=== PATIENT | female | born 1995 | race Caucasian/White ===

== ENCOUNTER 2022-08-22 07:56 | Outpatient (CLI) | payer BC ==
[~2022-08-22 07:56] MED LIST: METO-292 PO
[2022-08-22 08:55] LABS: BASOPHILS % (AUTO) 0.4 % (0-1); EOSINOPHILS # (AUTO) 0.1 X10'3 (0-0.9); EOSINOPHILS % (AUTO) 0.6 % (0-6); HEMATOCRIT 41.7 % (35.0-45.0); HEMOGLOBIN 13.5 g/dl (12.0-16.0); LYMPHOCYTES % (AUTO) 24.5 % (21-51); MEAN CORPUSCULAR HEMOGLOBIN 26.7 PG (27.0-31.0); MEAN CORPUSCULAR HGB CONC 32.5 g/dL (33.0-36.5); MEAN CORPUSCULAR VOLUME 82.4 FL (78-98); MEAN PLATELET VOLUME 8.2 FL (7.4-10.4); MONOCYTES # (AUTO) 0.5 X10'3 (0-0.9); MONOCYTES % (AUTO) 6.2 % (2-12); NEUTROPHILS # (AUTO) 5.6 X10'3 (1.8-7.7); NEUTROPHILS % (AUTO) 68.3 % (42-75); PLATELET COUNT 226 X10'3 (140-440); RED BLOOD COUNT 5.06 X10'6 (4.20-5.60); RED CELL DISTRIBUTION WIDTH 20.4 % (11.5-14.5); WHITE BLOOD COUNT 8.2 X10'3 (4.5-11.0)
[2022-08-22 08:59] LABS: HEMOGLOBIN A1C 5.3 % (4.5-6.2)
[2022-08-22 09:10] LABS: ALANINE AMINOTRANSFERASE 22 U/L (12-78); ALBUMIN 4.3 G/DL (3.4-5.0); ALBUMIN/GLOBULIN RATIO 1.3 (1.1-1.5); ALKALINE PHOSPHATASE 64 IU/L (46-116); ANION GAP 7 (8-16); ASPARTATE AMINO TRANSFERASE 17 U/L (10-37); BILIRUBIN,TOTAL 0.9 MG/DL (0.1-1.0); BLOOD UREA NITROGEN 13 MG/DL (7-18); BUN/CREATININE RATIO 12.6 (6.6-38.0); CALCIUM 9.2 MG/DL (8.5-10.1); CHLORIDE 104 MMOL/L (99-107); CHOLESTEROL 188 MG/DL (0-200); CREATININE 1.03 MG/DL (0.40-0.90); GLUCOSE 90 MG/DL (70-104); HDL CHOLESTEROL 93 MG/DL (35-60); LDL CHOLESTEROL 78 MG/DL (50-100); POTASSIUM 3.7 MMOL/L (3.5-5.1); SODIUM 140 MMOL/L (135-145); TOTAL CARBON DIOXIDE 28.7 MMOL/L (24-32); TOTAL PROTEIN 7.5 G/DL (6.4-8.2); TRIGLYCERIDES 80 MG/DL (20-135); eGFR 65 ML/MIN
[2022-08-22 09:22] LABS: C-REACTIVE PROTEIN < 0.05 MG/DL (0.0-0.5)
[2022-08-22 09:50] LABS: ANISOCYTOSIS 3+; PLATELET ESTIMATE NORMAL
[2022-08-23 11:07] LABS: ESTRADIOL 50.6 pg/mL (.); FSH, SERUM 5.7 mIU/mL (.); LUTEINIZING HORMONE 4.3 mIU/mL (.); PROLACTIN 5.2 ng/mL (4.8-23.3)
== END 2022-08-22 23:59 | disposition home or self-care (01) ==
LOC: LAB 07:56
PROVIDERS: ATTEND Nurse Practitioner Family
DX: R68.89 Other general symptoms and signs (principal)
CPT/HCPCS: 36415; 80053; 80061; 82670; 83001; 83002; 83036; 84146; 84439; 84443; 85008; 85025; 86140

== ENCOUNTER 2023-11-12 12:08 | Outpatient (CLI) | payer BC ==
[2023-11-12 14:09] LABS: BASOPHILS % (AUTO) 0.5 % (0-1); EOSINOPHILS % (AUTO) 0.7 % (0-6); HEMATOCRIT 41.6 % (35.0-45.0); HEMOGLOBIN 13.9 g/dl (12.0-16.0); LYMPHOCYTES # (AUTO) 2.3 X10'3 (1.1-4.8); LYMPHOCYTES % (AUTO) 35.7 % (21-51); MEAN CORPUSCULAR HEMOGLOBIN 29.8 PG (27.0-31.0); MEAN CORPUSCULAR HGB CONC 33.4 g/dL (33.0-36.5); MEAN CORPUSCULAR VOLUME 89.3 FL (78-98); MEAN PLATELET VOLUME 8.4 FL (7.4-10.4); MONOCYTES # (AUTO) 0.4 X10'3 (0-0.9); MONOCYTES % (AUTO) 6.6 % (2-12); NEUTROPHILS # (AUTO) 3.7 X10'3 (1.8-7.7); NEUTROPHILS % (AUTO) 56.5 % (42-75); PLATELET COUNT 213 X10'3 (140-440); RED BLOOD COUNT 4.65 X10'6 (4.20-5.60); RED CELL DISTRIBUTION WIDTH 13.3 % (11.5-14.5); WHITE BLOOD COUNT 6.6 X10'3 (4.5-11.0)
[2023-11-12 14:17] LABS: ALANINE AMINOTRANSFERASE 18 U/L (12-78); ALBUMIN 3.9 G/DL (3.4-5.0); ALBUMIN/GLOBULIN RATIO 1.1 (1.1-1.5); ALKALINE PHOSPHATASE 46 IU/L (46-116); ANION GAP 7 (8-16); ASPARTATE AMINO TRANSFERASE 16 U/L (10-37); BILIRUBIN,TOTAL 0.8 MG/DL (0.1-1.0); BLOOD UREA NITROGEN 15 MG/DL (7-18); CALCIUM 9.2 MG/DL (8.5-10.1); CHLORIDE 104 MMOL/L (99-107); CREATININE 0.94 MG/DL (0.40-0.90); GLUCOSE 90 MG/DL (70-104); LIPASE 56 U/L (16-77); MAGNESIUM 1.8 MG/DL (1.5-2.4); POTASSIUM 3.8 MMOL/L (3.5-5.1); SODIUM 142 MMOL/L (135-145); TOTAL CARBON DIOXIDE 30.9 MMOL/L (24-32); TOTAL PROTEIN 7.4 G/DL (6.4-8.2); eGFR 71 ML/MIN
== END 2023-11-12 23:59 | disposition home or self-care (01) ==
LOC: LAB 12:08
PROVIDERS: ATTEND Nurse Practitioner Family
DX: R19.7 Diarrhea, unspecified (principal); R25.2 Cramp and spasm; E66.3 Overweight
CPT/HCPCS: 36415; 80053; 82607; 83690; 83735; 85025

== ENCOUNTER 2023-12-03 08:12 | Outpatient (CLI) | payer BC ==
[2023-12-03] MEDS ORDERED: iohexol 300mg/ml 100ml inj. ONE (09:59)
== END 2023-12-03 23:59 | disposition home or self-care (01) ==
LOC: RAD 08:12
PROVIDERS: ATTEND Nurse Practitioner Family
DX: R10.12 Left upper quadrant pain (principal)
CPT/HCPCS: 74177; J3490; Q9967

== ENCOUNTER 2023-12-19 12:46 | Outpatient (CLI) | payer BC | END 2023-12-19 23:59 | disposition home or self-care (01) | LOC: RAD 12:46 | PROVIDERS: ATTEND Nurse Practitioner Family | DX: M46.02 Spinal enthesopathy, cervical region (principal); M54.50 Low back pain, unspecified | CPT/HCPCS: 72040; 72070; 72100 ==

== ENCOUNTER 2024-07-21 07:15 | Outpatient (CLI) | payer BC ==
[2024-07-21 07:36] LABS: BASOPHILS % (AUTO) 0.4 % (0-1); EOSINOPHILS # (AUTO) 0.1 X10'3 (0-0.9); EOSINOPHILS % (AUTO) 2.4 % (0-6); HEMATOCRIT 42.7 % (35.0-45.0); LYMPHOCYTES # (AUTO) 2.1 X10'3 (1.1-4.8); MEAN CORPUSCULAR HEMOGLOBIN 30.2 PG (27.0-31.0); MEAN CORPUSCULAR HGB CONC 32.9 g/dL (33.0-36.5); MEAN CORPUSCULAR VOLUME 91.9 FL (78-98); MEAN PLATELET VOLUME 9.1 FL (7.4-10.4); MONOCYTES # (AUTO) 0.3 X10'3 (0-0.9); MONOCYTES % (AUTO) 6.7 % (2-12); NEUTROPHILS # (AUTO) 2.5 X10'3 (1.8-7.7); NEUTROPHILS % (AUTO) 49.5 % (42-75); PLATELET COUNT 197 X10'3 (140-440); RED BLOOD COUNT 4.65 X10'6 (4.20-5.60); RED CELL DISTRIBUTION WIDTH 13.1 % (11.5-14.5)
[2024-07-21 07:55] LABS: ALANINE AMINOTRANSFERASE 14 U/L (12-78); ALBUMIN 3.8 G/DL (3.4-5.0); ALBUMIN/GLOBULIN RATIO 1.3 (1.1-1.5); ALKALINE PHOSPHATASE 44 IU/L (46-116); ANION GAP 4 (8-16); ASPARTATE AMINO TRANSFERASE 12 U/L (10-37); BILIRUBIN,TOTAL 0.5 MG/DL (0.1-1.0); BLOOD UREA NITROGEN 12 MG/DL (7-18); BUN/CREATININE RATIO 16.2 (10.0-20.0); CALCIUM 8.4 MG/DL (8.5-10.1); CHLORIDE 107 MMOL/L (99-107); CREATININE 0.74 MG/DL (0.40-0.90); GLUCOSE 74 MG/DL (70-104); POTASSIUM 4.3 MMOL/L (3.5-5.1); SODIUM 141 MMOL/L (135-145); TOTAL CARBON DIOXIDE 29.9 MMOL/L (24-32); TOTAL PROTEIN 6.7 G/DL (6.4-8.2); eGFR > 90 ML/MIN
[2024-07-21 08:04] LABS: C-REACTIVE PROTEIN 0.14 MG/DL (0.0-0.5); CHOL/HDL RATIO 2.1 (0.00-4.99); CHOLESTEROL 128 MG/DL (0-200); FREE T4 (FREE THYROXINE) 0.86 NG/DL (0.73-1.40); HDL CHOLESTEROL 61 MG/DL (35-60); LDL CHOLESTEROL 58 MG/DL (50-100); THYROID STIMULATING HORMONE 1.14 ulU/ml (0.34-4.50); TRIGLYCERIDES 29 MG/DL (20-135)
== END 2024-07-21 23:59 | disposition home or self-care (01) ==
LOC: LAB 07:15
DX: Z13.0 Encounter for screening for diseases of the blood and blood-forming organs and certain disorders involving the immune mechanism (principal); Z13.220 Encounter for screening for lipoid disorders; R21 Rash and other nonspecific skin eruption; R53.83 Other fatigue
CPT/HCPCS: 36415; 80053; 80061; 84439; 84443; 85025; 85651; 86038; 86140

== ENCOUNTER 2024-10-19 07:10 | Outpatient (CLI) | payer BC | END 2024-10-19 23:59 | disposition home or self-care (01) | LOC: RAD 07:10 | PROVIDERS: ATTEND Nurse Practitioner Family | DX: M54.50 Low back pain, unspecified (principal); M89.29 Other disorders of bone development and growth, multiple sites; M79.604 Pain in right leg; M79.605 Pain in left leg | CPT/HCPCS: 72110 ==

== ENCOUNTER 2025-01-13 07:29 | Outpatient (CLI) | payer BC | END 2025-01-13 23:59 | disposition home or self-care (01) | LOC: RAD 07:29 | PROVIDERS: ATTEND Nurse Practitioner Family | DX: N39.0 Urinary tract infection, site not specified (principal) | CPT/HCPCS: 74176 ==

== ENCOUNTER 2025-05-17 06:24 | Emergency (ER) | payer BC ==
[~2025-05-17] VITALS: Ht 165.1 cm; Wt 77.3 kg
--- NOTE | 2025-05-17 06:50 | Physician Documentation ---
History of Present Illness ~ Chief Complaint: Complications Stated Complaint: VOMITING Time Seen by MD: 06:49 Primary Medical Doctor: [facility] Mode of Arrival: Ambulatory HPI LMP January 26 p/w n/v. Has been vomiting then developed eipgastric abdominal pain subsequently. no VB, No contractions. Other pregnancies ended in miscarriage Last Menstrual Period: Feb 05, 2025 Medication Reconciliation Allergies: Coded Allergies: No Known Allergies (Unverified , 11/24/23) Scheduled Metoclopramide HCl (Reglan), 1 TAB PO Q8H Scheduled PRN ONDANSETRON ODT 4mg tablet (Ondansetron Odt), 1 TAB PO Q6H PRN PRN for nausea/vomiting Past Medical History Past Medical History: No Pertinent History Past Surgical History: no surgical history Last Menstrual Period: Feb 05, 2025 Alcohol Use: None Drug Use: none Lives with: Mother Lives In: Home Review of Systems All Other Systems at this time: Reviewed and Negative Constitutional: Denies: fever Physical Exam Physical Exam Vital Signs: Temperature: 98.3, Source: Temporal, Heart Rate: 87, Respiratory Rate: 16, BP: 117/70, Pulse Oximetry: 99, Weight: 77.270 Oxygen Flow Rate: 0 Physical Exam well appearing no distress awake alert oriented abdomen soft, mild epigastric and Luq ttp. No guarding or rebound. skin pwd Progress Progress Note recheck at 9am feeling better. Results/Orders Results/Orders Orders - PENNY TREVINO MD US OB (05/17/25 06:54) Completed Orders - PENNY TREVINO MD Ringers Solution, Lacted (Lactated Ringe (05/17/25 06:55) Calcium Carbonate Chew Tablet (Tums Chew (05/17/25 06:55) Ondansetron Inj. (Zofran 4mg/2ml Vial) (05/17/25 06:55) US OB (05/17/25 06:54) Famotidine Tablet (Pepcid Tablet) (05/17/25 06:55) Medications Received in ER Medications (Trade) Dose Ordered Sig/Laura Route PRN Reason Start Time Stop Time Status Last Admin Dose Admin Lactated Ringer's 1,000 ml @ 1,000 mls/hr ONCE ONCE IV 05/17/25 06:55 05/17/25 07:54 DC 05/17/25 07:17 1,000 MLS/HR (Pepcid tablet) 10 mg ONCE ONCE PO 05/17/25 06:55 05/17/25 06:58 DC 05/17/25 07:17 10 MG (TUMS chew tablet) 500 mg ONCE ONCE PO 05/17/25 06:55 05/17/25 06:59 DC 05/17/25 07:17 500 MG (Zofran 4mg/2ml vial) 4 mg ONCE ONCE IV 05/17/25 06:55 05/17/25 06:59 DC 05/17/25 07:17 4 MG Vital Signs 05/17/25 05/17/25 05/17/25 05/17/25 06:28 06:38 08:23 09:57 Temp 98.3 98.3 98.3 Pulse 87 61 Resp 18 16 14 B/P (MAP) 117/70 105/62 (76) Pulse Ox 99 100 O2 Flow Rate 0 0 Laboratory Tests Test 05/17/25 07:05 05/17/25 07:14 White Blood Count 10.4 Red Blood Count 4.57 Hemoglobin 13.4 Hematocrit 39.7 Mean Corpuscular Volume 86.8 Mean Corpuscular Hemoglobin 29.3 Mean Corpuscular Hemoglobin Concent 33.8 Red Cell Distribution Width 14.1 Platelet Count 190 Mean Platelet Volume 8.2 Neutrophils (%) (Auto) 81.4 H Lymphocytes (%) (Auto) 12.9 L Monocytes (%) (Auto) 5.3 Eosinophils (%) (Auto) 0.2 Basophils (%) (Auto) 0.2 Neutrophils # (Auto) 8.5 H Lymphocytes # (Auto) 1.3 Monocytes # (Auto) 0.6 Eosinophils # (Auto) 0.0 Basophils # (Auto) 0.0 CBC Comment Sodium Level 138 Potassium Level 3.8 Chloride Level 103 Carbon Dioxide Level 26.3 Anion Gap 9 Blood Urea Nitrogen 11 Creatinine 0.71 Estimated GFR/1.73 m2 > 90 BUN/Creatinine Ratio 15.5 Glucose Level 92 Calcium Level 8.5 Total Bilirubin 0.8 Aspartate Amino Transf (AST/SGOT) 15 Alanine Aminotransferase (ALT/SGPT) 18 Alkaline Phosphatase 47 Total Protein 7.0 Albumin 3.6 Globulin 3.4 Albumin/Globulin Ratio 1.1 Lipase 45 Chemistry Comments Urine Specimen Description Cln catch midstream Urine Color Straw Urine Clarity Clear Urine pH 6.5 Urine Specific [place] <=1.005 Urine Protein Negative Urine Glucose (UA) Negative Urine Ketones Negative Urine Occult Blood Negative Urine Nitrite Negative Urine Bilirubin Negative Urine Urobilinogen 0.2 Urine Leukocyte Esterase Trace H Urine RBC 0-2 Urine WBC 0-4 Urine Squamous Epithelial Cells Few Urine Bacteria Few Urine Culture Indicated Indicated Volume Urine Centrifuged 10 ml Urine Comment Microbiology Date/Time Source Procedure Growth Status 05/17/25 09:37 Urine Clean Catch Midstream Urine Culture - Preliminary Culture received. Resulted Medical Decision Making Differential Dx:Considerations: Include: -incomplete, - inevitable, -missed Departure Disposition: HOME / SELF CARE / HOMELESS Impression: Primary Impression: Nausea & vomiting Qualified Codes: R11.2 - Nausea with vomiting, unspecified Additional Impression: Complication of Qualified Codes: O26.91 - related conditions, unspecified, first trimester Additional Instructions: Please follow up with OB. return for worsening symptoms Referrals: NO PRIMARY CARE PROVIDER (PCP) Prescriptions ONDANSETRON ODT 4mg tablet (ONDANSETRON ODT) 4 Mg Tab.rapdis 1 TAB PO Q6H PRN PRN for nausea/vomiting for 4 Days, #16 TAB 0 Refills Prov: PENNY TREVINO MD 05/17/25 Signature Scribe Signature: sunny Attestation: PENNY Lund MD May 17, 2025 06:50
[2025-05-17 07:13] LABS: MEAN PLATELET VOLUME 8.2 FL (7.4-10.4); RED CELL DISTRIBUTION WIDTH 14.1 % (11.5-14.5)
[2025-05-17] MEDS: ringers solution, lacted 1,000 ML IV ONE (07:17)
[2025-05-17] MEDS: calcium carbonate 500mg chew tablet PO ONE (07:17)
[2025-05-17] MEDS: ondansetron/PF 4mg/2ml inj IV ONE (07:17)
[2025-05-17 07:28] LABS: CREATININE 0.71 MG/DL (0.40-0.90); TOTAL CARBON DIOXIDE 26.3 MMOL/L (24-32); eCRCL 105 ML/MIN; eGFR > 90 ML/MIN
[2025-05-17 08:23] VITALS: BP 105/62; PULSE 61; RESP 14; O2SAT 100
--- NOTE | 2025-05-17 08:32 | RADIOLOGY REPORT ---
OB ULTRASOUND <14 WEEKS: HISTORY: TECHNIQUE: Multiple real-time grayscale sonographic images of the pelvis with duplex Doppler color f low, spectral and M-mode analysis. TRANSDUCERS: Transabdominal FINDINGS: The uterus measures 8.7 x 5.8 x 7.7 cm. The cervix not well visualized. Right ovary measures 4.3 x 3.5 x 2.5 cm with normal Doppler color flow Left ovary measures 3.1 x 3.5 x 2.6 cm with normal Doppler color flow IUP single live fetus at 6 weeks 3 days average ultrasound age based on mean crown-rump length of 0.7 cm and gestational sac size of 1.8 cm heart rate detected at 176 beats per minute. Yolk sac visualized. IMPRESSION: IUP single live fetus 6 weeks 3 days AUA corresponding to an JORDYN of 01/07/26. No acute abnormality detected.
[2025-05-17 09:28] LABS: LEUKOCYTE ESTERASE ,URINE TRACE (Neg); NITRITES, URINE NEGATIVE (Neg); OCCULT BLOOD,URINE NEGATIVE (Neg)
[2025-05-17 09:30] LABS: UA COLLECTION TYPE CLN CATCH MIDSTREAM
[2025-05-17 09:34] LABS: SQUAMOUS EPITHELIAL CELL,UR FEW /LPF (FEW)
[2025-05-17] MEDS ORDERED: ONDA-243 PO (09:49)
[2025-05-17 09:57] VITALS: TEMP 98.3
== END 2025-05-17 10:00 | disposition home or self-care (01) ==
LOC: EEVIPCON 06:25 → ER 06:25
DX: O26.891 Other specified pregnancy related conditions, first trimester (principal); R11.2 Nausea with vomiting, unspecified; R10.13 Epigastric pain; Z3A.01 Less than 8 weeks gestation of pregnancy; Z79.899 Other long term (current) drug therapy
CPT/HCPCS: 36415; 76801; 80053; 81001; 83690; 85025; 87088; 96361; 96374; 99285; J2405; J7120

== ENCOUNTER 2025-07-05 13:19 | Emergency (ER) | payer BC, MEDICAID ==
[~2025-07-05] VITALS: Ht 165.1 cm; Wt 77.3 kg
[~2025-07-05 13:19] MED LIST changes: +ONDA-243 PO
[2025-07-05 13:22] VITALS: BP 128/73; PULSE 70; RESP 18; TEMP 97.6; O2SAT 98
[2025-07-05 14:11] LABS: LEUKOCYTE ESTERASE ,URINE LARGE (Neg); NITRITES, URINE NEGATIVE (Neg); OCCULT BLOOD,URINE LARGE (Neg)
[2025-07-05 14:12] LABS: UA COLLECTION TYPE CLN CATCH MIDSTREAM
[2025-07-05 14:13] LABS: URINE HCG POSITIVE (NEG)
[2025-07-05 14:18] LABS: MUCUS STRANDS NONE SEEN /LPF (Neg); SQUAMOUS EPITHELIAL CELL,UR MODERATE /LPF (FEW); WBC CLUMPS,URINE FEW /HPF (NEGATIVE)
[2025-07-05] MEDS ORDERED: PHEN-824 PO (14:23)
[2025-07-05] MEDS ORDERED: CEPH-585 PO (14:23)
--- NOTE | 2025-07-05 14:24 | Physician Documentation ---
History of Present Illness ~ Chief Complaint: Urinary Symptoms Stated Complaint: UTI Time Seen by MD: 14:17 Primary Medical Doctor: [facility] HPI This 29-year-old female patient who is 12 weeks presents with the complaints of urinary symptoms indicating a urinary tract infection. reports painful urination Medication Reconciliation Allergies: Coded Allergies: No Known Allergies (Unverified , 07/05/25) Scheduled Cephalexin*Monohydrate* (Keflex*), 1 CAP PO QID Metoclopramide HCl (Reglan), 1 TAB PO Q8H Phenazopyridine HCl (Pyridium), 1 TAB PO Q8H Scheduled PRN ONDANSETRON ODT 4mg tablet (Ondansetron Odt), 1 TAB PO Q6H PRN PRN for nausea/vomiting Past Medical History Past Medical History: No Pertinent History Past Surgical History: no surgical history Alcohol Use: None Drug Use: none Lives with: Mother Lives In: Home Review of Systems All Other Systems at this time: Reviewed and Negative ROS As stated above in the HPI, otherwise all systems are reviewed and negative. Physical Exam Vital Signs: Temperature: 97.6, Source: Temporal, Heart Rate: 70, Respiratory Rate: 18, BP: 128/73, Pulse Oximetry: 98, Weight: 77.270 Physical Exam General: Alert, no apparent distress. Cardiovascular: Regular rate and rhythm, no murmurs. Gastrointestinal: Soft, nontender, nondistended. Bowels sounds present. Extremities: Normal range of motion, no deformity. Neurologic: Oriented x4. Psychiatric: Normal mood and affect. Skin: Normal color, warm and dry. No edema, no ecchymosis. Progress Results/Orders Results/Orders Orders - AMOS MELTON ASSESSMENT RN Cult Urine + [place] [address] (07/05/25 14:18) Cephalexin Capsule (Keflex Capsule) (07/05/25 14:25) Phenazopyridine Tablet (Pyridium Tablet) (07/05/25 14:25) Completed Orders - AMOS MELTON ASSESSMENT RN Hcg, Ur Ql (07/05/25 13:37) Ua W/Microscopic, Cult If Ind (07/05/25 13:25) Vital Signs 07/05/25 13:22 Temp 97.6 Pulse 70 Resp 18 B/P (MAP) 128/73 Pulse Ox 98 Laboratory Tests Test 07/05/25 13:25 Urine Specimen Description Cln catch midstream Urine Color Yellow Urine Clarity Cloudy Urine pH 6.5 Urine Specific [place] <=1.005 Urine Protein Trace Urine Glucose (UA) Negative Urine Ketones Negative Urine Occult Blood Large H Urine Nitrite Negative Urine Bilirubin Negative Urine Urobilinogen 0.2 Urine Leukocyte Esterase Large H Urine RBC 50-100 Urine WBC Tntc H Urine WBC [place] Few Urine Squamous Epithelial Cells Moderate Urine Bacteria 2+ Urine Mucus None seen Urine Culture Indicated Indicated Volume Urine Centrifuged 10 ml Urine HCG, Qualitative Positive Urine Comment Medical Decision Making Findings He will be treated for UTI and I sent Pyridium her pharmacy. Based on her complaint in severity as complaint I am going to take her off work for two days. Present as acutely ill or show any signs of SIRS. Cleared her for outpatient therapy Urinary Diff Dx:Considerations: Include: AAA, , Aortic dissection, Appendicitis, Bowel obstruction, Cholelithiasis, Choleangitis, DJD, Ectopic , Hepatitis, HNP, Impaction, Intrauterine , Musculoskeletal pain, Ovarian torsion, Pancreatitis, PID, Post-Op complication, Pyelonephritis, Renal failure, Strain, Urinary Obstruction, Urolithiasis, Urinary retention, UTI, Vaginitis, Other Departure Disposition: 01 HOME / SELF CARE / HOMELESS Impression: Primary Impression: Acute urinary tract infection Discharge Instructions: Urinary Tract Infection, Adult Departure Forms: Excuse form Work or School Excused From: Work Excuse beginning now through the following date: Jul 07, 2025 May Return but still avoid physical Activity from now until: Jul 07, 2025 May Return to full physical activity as of: Jul 07, 2025 Referrals: NO PRIMARY CARE PROVIDER (PCP) Prescriptions Phenazopyridine HCl (Pyridium) 100 Mg Tablet 1 TAB PO Q8H for urinary discomfort for 2 Days, #6 TAB 0 Refills Prov: AMOS MELTON NP 07/05/25 Cephalexin*Monohydrate* (Keflex*) 500 Mg Capsule 1 CAP PO QID, #40 CAP Prov: AMOS MELTON NP 07/05/25 Education Educated: Patient Educated regarding: diagnosis Signature Scribe Signature: y Attestation: Scribed for Amos Melton Tree Sapper by Amos Ashby NP . 07/05/25 14:22 AMOS MELTON NP Jul 05, 2025 14:24
[2025-07-05] MEDS: phenazopyridine 100mg tablet PO ONE (14:30)
== END 2025-07-05 14:30 | disposition home or self-care (01) ==
LOC: ER 13:20
DX: O23.41 Unspecified infection of urinary tract in pregnancy, first trimester (principal); Z3A.12 12 weeks gestation of pregnancy
CPT/HCPCS: 81001; 81025; 87077; 87088; 87186; 99283

== ENCOUNTER 2025-07-13 09:45 | Outpatient (CLI) | payer MEDICAID ==
[~2025-07-13 09:45] MED LIST changes: +CEPH-585 PO; +PHEN-824 PO
[2025-07-13 12:15] LABS: MEAN PLATELET VOLUME 8.5 FL (7.4-10.4); RED CELL DISTRIBUTION WIDTH 13.4 % (11.5-14.5)
[2025-07-13 13:58] LABS: LEUKOCYTE ESTERASE ,URINE NEGATIVE (Neg); NITRITES, URINE NEGATIVE (Neg); OCCULT BLOOD,URINE NEGATIVE (Neg)
[2025-07-13 13:59] LABS: UA COLLECTION TYPE NON-SPECIFIED
[2025-07-13 14:05] LABS: SQUAMOUS EPITHELIAL CELL,UR FEW /LPF (FEW)
[2025-07-13 14:06] LABS: AMORPHOUS URATES 3+
[2025-07-13 14:35] LABS: URINE AMPHETAMINE SCREEN NEGATIVE (Neg); URINE BARBITUATE SCREEN NEGATIVE (Neg); URINE BENZODIAZEPINES SCREEN NEGATIVE (Neg); URINE CANNABINOID SCREEN NEGATIVE (Neg); URINE COCAINE SCREEN NEGATIVE (Neg); URINE METHADONE SCREEN NEGATIVE (Neg); URINE OPIATE SCREEN NEGATIVE (Neg); URINE PHENCYCLIDINE SCREEN NEGATIVE (Neg)
[2025-07-15 11:26] LABS: VARICELLA-ZOSTER VIRUS AB, IGG Reactive (Non Reactive)
[2025-07-16 05:13] LABS: HBSAG SCREEN Negative (Negative); HEPATITIS C VIRUS ANTIBODY Non Reactive (Non Reactive)
== END 2025-07-13 23:59 | disposition home or self-care (01) ==
LOC: RAD 09:45
PROVIDERS: ATTEND Obstetrics & Gynecology
DX: Z34.90 Encounter for supervision of normal pregnancy, unspecified, unspecified trimester (principal); Z3A.00 Weeks of gestation of pregnancy not specified
CPT/HCPCS: 36415; 80305; 81001; 83036; 85025; 86592; 86762; 86803; 86885; 86900; 86901; 87088; 87340; 87389; 87491; 87522

== ENCOUNTER 2025-10-11 08:08 | Outpatient (CLI) | payer MEDICAID ==
[2025-10-11 08:41] LABS: MEAN PLATELET VOLUME 8.0 FL (7.4-10.4); RED CELL DISTRIBUTION WIDTH 14.0 % (11.5-14.5)
== END 2025-10-11 23:59 | disposition home or self-care (01) ==
LOC: LAB 08:08
PROVIDERS: ATTEND Midwife
DX: Z34.92 Encounter for supervision of normal pregnancy, unspecified, second trimester (principal); Z3A.00 Weeks of gestation of pregnancy not specified
CPT/HCPCS: 36415; 82950; 85025; 86885; 86900; 86901